=== PATIENT | male | born 1960 | race Caucasian/White ===

== ENCOUNTER 2020-09-22 22:06 | Emergency (ER) | payer MEDICARE, OTHER ==
[~2020-09-22] VITALS: Ht 185.4 cm; Wt 88.5 kg
[2020-09-22] MEDS ORDERED: BLOOD PRESSURE MEDS (22:14)
[2020-09-22] MEDS ORDERED: NORCO 5-325 TA1 EAC2 PO (22:50)
[2020-09-22] MEDS ORDERED: KEFLEX500 M1 PO (22:50)
[2020-09-22 23:59] VITALS: BP 109/72
== END 2020-09-22 23:59 | disposition home or self-care (01) ==
LOC: M.ERS 22:06
DX: S01.01XA Laceration without foreign body of scalp, initial encounter (principal); I10 Essential (primary) hypertension; K21.9 Gastro-esophageal reflux disease without esophagitis; Z90.89 Acquired absence of other organs; G47.30 Sleep apnea, unspecified; W18.39XA Other fall on same level, initial encounter; Y93.89 Activity, other specified; Y92.89 Other specified places as the place of occurrence of the external cause; Y99.8 Other external cause status

== ENCOUNTER 2021-03-07 21:20 | Emergency (ER) | payer MEDICARE, OTHER ==
[~2021-03-07] VITALS: Ht 185.4 cm; Wt 95.3 kg
[~2021-03-07 21:20] MED LIST: BLOOD PRESSURE MEDS; KEFLEX500 M1 PO; NORCO 5-325 TA1 EAC2 PO
[2021-03-07 22:07] LABS: ABSOLUTE BASOPHILS 0.1 thou/uL (0.0-0.2); ABSOLUTE LYMPHOCYTES 1.8 thou/uL (0.8-5.3); ABSOLUTE MONOCYTES 0.4 thou/uL (0.0-1.2); EOSINOPHILS 0.7 %; HEMATOCRIT 44.8 % (42.0-52.0); LYMPHOCYTES 34.2 %; MCH 37.1 pg (26.0-34.0); MCHC 35.7 g/dL (28.0-37.0); MCV 103.9 fL (80.0-100.0); MONOCYTES 8.1 %; MPV 7.3 fl. (7.2-11.1); NUCLEATED RBCS 0 /100WBC; PLATELET COUNT* 117 thou/uL (150-400); RBC 4.31 mil/uL (4.50-6.00); WBC 5.3 thou/uL (4.0-11.0)
[2021-03-07 22:16] LABS: CALCIUM 8.4 mg/dL (8.5-10.1); CREATININE 0.7 mg/dL (0.6-1.3); POTASSIUM 3.2 mmol/L (3.5-5.1)
[2021-03-07 22:20] LABS: ALBUMIN 3.3 g/dL (3.4-5.0); TOTAL BILIRUBIN 1.4 mg/dL (<0.1-1.0); TOTAL PROTEIN 6.4 g/dL (6.4-8.2)
[2021-03-07 23:56] LABS: URINE BILIRUBIN NEGATIVE (Negative); URINE BLOOD 1+ (Negative); URINE CLARITY CLEAR; URINE COLOR YELLOW; URINE GLUCOSE-RANDOM NEGATIVE (Negative); URINE KETONES 2+ (Negative); URINE LEUKOCYTES-REFLEX NEGATIVE (Negative); URINE NITRITE-REFLEX NEGATIVE (Negative); URINE PROTEIN NEGATIVE (Negative); URINE SPECIFIC GRAVITY 1.015 (1.005-1.030)
[2021-03-08 00:02] LABS: AMP/METHAMP Negative (Negative); BARBITURATES POSITIVE (Negative); BENZODIAZEPINES Negative (Negative); COCAINE Negative (Negative); METHADONE Negative (Negative); OPIATES Negative (Negative); PCP Negative (Negative); THC Negative (Negative)
[2021-03-08 00:32] LABS: CASTS None Seen /LPF (None Seen); SQUAMOUS NONE SEEN /LPF (0-3); URINE WBC-REFLEX None Seen /HPF (0-5)
[2021-03-08 00:33] LABS: BACTERIA-REFLEX None Seen /HPF (None Seen); CALCIUM OXALATE 0-3 Few /LPF (None Seen); URINE RBC 3-10 Few /HPF (0-2)
[2021-03-08] MEDS ORDERED: LISINOPRIL-HCT1 EACH PO (01:54)
[2021-03-08] MEDS ORDERED: VERTICALM25 MG PO (01:54)
[2021-03-08 02:13] VITALS: BP 120/70
== END 2021-03-08 02:14 | disposition home or self-care (01) ==
LOC: M.ERS 21:20
PROVIDERS: Personal Emergency Response Attendant
DX: I16.0 Hypertensive urgency (principal); Z20.822 Contact with and (suspected) exposure to COVID-19; F10.129 Alcohol abuse with intoxication, unspecified; Y90.6 Blood alcohol level of 120-199 mg/100 ml; I10 Essential (primary) hypertension; K21.9 Gastro-esophageal reflux disease without esophagitis; G47.30 Sleep apnea, unspecified; Z79.899 Other long term (current) drug therapy